=== PATIENT | male | born 1965 | race Caucasian/White ===

== ENCOUNTER 2017-09-26 15:48 | Inpatient (IN) | payer OTHER ==
[~2017-09-26] VITALS: Ht 175.3 cm; Wt 112.5 kg
--- NOTE | ~2017-09-26 | EKG ---
[place] [address] [place] [address] ELECTROCARDIOGRAM REPORT Name: REYNALDO CURRY Room #: REG JULIO Sandra#: [id number] Admission: 09/26/17 Attend Phys: Discharge: Date of : 67 Report #: [id number] THIS REPORT FOR: //name// [facility] ED Test Date: 2017-09-26 Test Time: 16:32:57 Pat Name: REYNALDO CURRY Department: Room: Gender: Chip Tester: MZOOK : 1965 Requested By: Carlo Pierre Order Number: [id number] MD: David Spencer Measurements Intervals [place] Rate: 106 P: 55 AR: 159 QRS: 39 QRSD: 81 T: 257 QT: 319 QTc: 424 Interpretive Statements Sinus tachycardia T abnormalities, inferior and lateral leads Compared to ECG 08/17/2012 07:04:21 T-wave abnormality now present Heart rate has increased Electronically Signed On 09-26-2017 16:50:18 EDGE BLACKER by David Spencer [email or web address] <ELECTRONICALLY SIGNED> By: David Spencer MD, [facility] 09/26/17 1650 1632 31 David Spencer MD, FACC /EPI
--- NOTE | ~2017-09-26 | 2DMMODE ---
[facility] [address] [place] [address] 2 D/M-MODE ECHOCARDIOGRAM Name: REYNALDO CURRY Room #: 359-P [facility] IN ..#: [id number] Admission: 09/26/17 Attend Phys: Antony Breen, Discharge: Date of : 67 Date of Service: 09/29/17 1205 Report #: [id number] THIS REPORT FOR: //name// APPROVED REPORT Study performed: 09/28/2017 11:46:35 EXAM: Comprehensive 2D, Doppler, and color-flow Echocardiogram Patient Location: Bedside Room #: 359 Status: on-call BSA: 2.26 HR: 68 bpm BP: 101/69 mmHg Rhythm: NSR Other Information Study Quality: Adequate Risk Factors: Cardiac Risk Factors: HTN, DM Indications Dyspnea EKG changes 2D Dimensions LVEF(%): 56.32 (>50%) IVSd: 10.63 (7-11mm) LVOT Diam: 20.00 (18-24mm) LVDd: 43.93 mm PWd: 10.63 (7-11mm) Ascending Ao: 33.62 (22-36mm) LVDs: 31.08 (25-40mm) Aortic Root: 30.87 mm LV Single Plane 4CH: 58.52 % LV Single Plane 2CH: 48.02 % Vance's LVEF: 53.27 % Biplane EF: 54.2 % Volumes Left Atrial Volume (Systole) Single Plane 4CH: 29.64 mL Single Plane 2CH: 37.70 mL LA ESV Index: 16.00 mL/m2 Aortic Valve AoV Peak Maximilian.: 1.00 m/s AO Peak Gr.: 4.00 mmHg LVOT Max P.16 mmHg [facility] [address] [place] [address] 2 D/M-MODE ECHOCARDIOGRAM Name: REYNALDO CURRY Room #: 359-P [facility] IN ..#: [id number] Admission: 09/26/17 Attend Phys: Antony Breen, Discharge: Date of : 67 Date of Service: 09/29/17 1205 Report #: [id number] LVOT Max V: 0.74 m/s ANA Vmax: 2.41 cm2 Mitral Valve E/A Ratio: 1.7 MV Decel. Time: 272.47 ms MV E Max Maximilian.: 0.84 m/s MV A Maximilian.: 0.49 m/s MV PHT: 79.01 ms IVRT: 78.43 ms TDI E/Lateral E': 9.33 E/Medial E': 14.00 Medial E' Maximilian.: 0.06 m/s Lateral E' Maximilian.: 0.09 m/s Pulmonary Valve PV Peak Maximilian.: 0.89 m/s PV Peak Gr.: 3.18 mmHg Pulmonary Vein P Vein S: 0.58 m/s P Vein A: 0.27 m/s P Vein D: 0.37 m/s P Vein A Dur.: 120.0 msec P Vein S/D Ratio: 1.57 Tricuspid Valve TR Peak Maximilian.: 2.14 m/s TR Peak Gr.: 18.25 mmHg Left Ventricle The left ventricle is normal size. There is normal LV segmental wall motion. Mild concentric left ventricular hypertrophy. Left ventricular systolic function is normal. The left ventricular ejection fraction is within the normal range. LVEF is 60%. Grade II - pseudonormal filling dynamics. Right Ventricle The right ventricle is normal size. The right ventricular systolic function is normal. Atria The left atrium size is normal. The right atrium size is normal. Aortic Valve The aortic valve is normal in structure. No aortic regurgitation is present. There is no aortic valvular stenosis. [facility] [address] [place] [address] 2 D/M-MODE ECHOCARDIOGRAM Name: REYNALDO CURRY Room #: 359-P [facility] IN [facility]#: [id number] Admission: 09/26/17 Attend Phys: Antony Breen, Discharge: Date of : 67 Date of Service: 09/29/17 1205 Report #: [id number] Mitral Valve The mitral valve is normal in structure. Trace mitral regurgitation. No evidence of mitral valve stenosis. Tricuspid Valve The tricuspid valve is normal in structure. Mild tricuspid regurgitation. Pulmonic Valve The pulmonary valve is normal in structure. Trace pulmonic regurgitation. Great Vessels The aortic root is normal in size. IVC is not well visualized. Pericardium There is no pericardial effusion. <Conclusion> The left ventricle is normal size. LVEF is 60%. The aortic valve is normal in structure. The mitral valve is normal in structure. Trace mitral regurgitation. The tricuspid valve is normal in structure. Mild tricuspid regurgitation. The pulmonary valve is normal in structure. Trace pulmonic regurgitation. There is no pericardial effusion. <ELECTRONICALLY SIGNED> By: Escobar Green MD 09/29/17 1205 1205 1205 Escobar Green MD /INF
[~2017-09-26 15:48] MED LIST: ACETAMINOPHEN325 M1 PO; ASPIRIN325 PO; ATORVASTATIN CA20 MG PO; HYDROCHLOROTHIA50 MG PO; NORCO 5-325 TA1 EACH PO; NORFLEX100 MG PO; PAXIL 20 MG TAB20 M1 PO; POTASSIUM20 PO; PRINIVIL5 MG PO; VITAMINC500 PO
[2017-09-26 15:50] VITALS: BP 138/56
[2017-09-26 16:15] LABS: ABSOLUTE NEUTROPHILS 5.8 thou/uL (1.4-8.2); BASOPHILS 0.8 % (0.0-2.0); EOSINOPHILS 0.4 % (0.0-3.0); HEMATOCRIT 46.2 % (42.0-52.0); HEMOGLOBIN 15.9 gm/dL (14.0-18.0); LYMPHOCYTES 23.7 % (24.0-44.0); MCH 30.3 pg (26.0-34.0); MCHC 34.5 g/dL (28.0-37.0); MCV 87.9 fL (80.0-100.0); MONOCYTES 7.4 % (1.0-8.0); PLATELET COUNT 228 thou/uL (150-400); POLYS 67.7 % (36.0-66.0); RBC 5.25 mil/uL (4.50-6.00); RDW 12.6 % (10.5-14.5); WBC 8.6 thou/uL (4.0-11.0)
[2017-09-26] MEDS ORDERED: HYDROCHLOROTHIA25 M2 PO (16:26)
[2017-09-26 16:28] LABS: ANION GAP 14 mmol/L (7-16); BUN 16 mg/dL (7-18); CALCIUM 9.9 mg/dL (8.5-10.1); CHLORIDE 90 mmol/L (98-107); CO2 24 mmol/L (21-32); CREATININE 1.6 mg/dL (0.7-1.3); POTASSIUM 3.6 mmol/L (3.5-5.1); SODIUM 128 mmol/L (136-145)
[2017-09-26 16:30] LABS: GLUCOSE 593 mg/dL (74-106)
[2017-09-26 16:34] LABS: URINE BILIRUBIN NEGATIVE (Negative); URINE BLOOD NEGATIVE (Negative); URINE CLARITY CLEAR; URINE COLOR YELLOW; URINE GLUCOSE-RANDOM* 3+ (Negative); URINE KETONES NEGATIVE (Negative); URINE LEUKOCYTES NEGATIVE (Negative); URINE NITRITE NEGATIVE (Negative); URINE PROTEIN (DIPSTICK) NEGATIVE (Negative); URINE UROBILINOGEN 0.2 E.U./dl (0.2-1.0)
[2017-09-26 16:36] LABS: ALBUMIN 3.9 g/dL (3.4-5.0); DIRECT BILIRUBIN 0.1 mg/dL (<0.1-0.3); LIPASE 84 U/L (73-393); SGOT 23 U/L (15-37); SGPT 74 U/L (30-65); TOTAL BILIRUBIN 0.5 mg/dL (<0.1-1.0); TOTAL PROTEIN 7.7 g/dL (6.4-8.2)
[2017-09-26 16:46] LABS: TROPONIN-I < 0.04 ng/mL (<0.06)
[2017-09-26 18:04] LABS: BE(vivo) -3.2 mmol/L (-2 to +3); HCO3 20.6 mmol/L (22.0-26.0); PCO2 33.9 mmHg (35.0-45.0); PO2 71.7 mmHg (80.0-100.0); pH 7.402 (7.360-7.450); sO2 94.6 % (92.0-98.0)
[2017-09-26 18:28] VITALS: BP 128/72
[2017-09-26 19:21] VITALS: BP 122/81
[2017-09-26 19:47] LABS: PHOSPHORUS 3.2 mg/dL (2.5-4.9)
[2017-09-26 19:50] VITALS: BP 145/95
[2017-09-27 03:30] VITALS: BP 114/81
[2017-09-27 05:44] LABS: HEMATOCRIT 37.5 % (42.0-52.0); MCH 30.3 pg (26.0-34.0); MCHC 35.1 g/dL (28.0-37.0); MCV 86.5 fL (80.0-100.0); RBC 4.34 mil/uL (4.50-6.00); RDW 12.7 % (10.5-14.5); WBC 6.2 thou/uL (4.0-11.0)
[2017-09-27 05:46] LABS: HEMOGLOBIN 13.2 gm/dL (14.0-18.0)
[2017-09-27 05:59] LABS: CALCIUM 8.3 mg/dL (8.5-10.1); CREATININE 0.9 mg/dL (0.7-1.3); MAGNESIUM 1.8 mg/dL (1.8-2.4); POTASSIUM 3.5 mmol/L (3.5-5.1)
[2017-09-27 08:00] VITALS: BP 128/83
[2017-09-27 11:25] VITALS: BP 119/79
[2017-09-27 16:30] VITALS: BP 110/81
[2017-09-27 19:04] VITALS: BP 108/70
[2017-09-27] MEDS ORDERED: LISINOPRIL10 MG PO (19:27)
[2017-09-27] MEDS ORDERED: BRINTELLIX20 MG PO (19:47)
[2017-09-27 20:43] LABS: URINE BILIRUBIN NEGATIVE (Negative); URINE BLOOD 3+ (Negative); URINE CLARITY CLEAR; URINE COLOR YELLOW; URINE GLUCOSE-RANDOM* NEGATIVE (Negative); URINE KETONES NEGATIVE (Negative); URINE LEUKOCYTES NEGATIVE (Negative); URINE NITRITE NEGATIVE (Negative); URINE PROTEIN (DIPSTICK) NEGATIVE (Negative); URINE SPECIFIC GRAVITY <= 1.005 (1.005-1.035); URINE UROBILINOGEN 0.2 E.U./dl (0.2-1.0)
[2017-09-27 20:57] LABS: BACTERIA 1-9 Few /HPF (None Seen); SQUAMOUS None Seen /LPF (0-3); URINE RBC >20 Many /HPF (0-2); URINE WBC 0-5 Rare /HPF (0-5)
[2017-09-27 20:58] LABS: CASTS None Seen /LPF (None Seen); CRYSTALS None Seen /LPF (None Seen)
[2017-09-27 21:09] LABS: GLYCOHEMOGLOBIN (HGB A1C) 9.6 % (4.8-5.6)
[2017-09-28 01:19] LABS: ABSOLUTE NEUTROPHILS 2.7 thou/uL (1.4-8.2); BASOPHILS 0.3 % (0.0-2.0); EOSINOPHILS 2.8 % (0.0-3.0); HEMATOCRIT 38.5 % (42.0-52.0); HEMOGLOBIN 13.5 gm/dL (14.0-18.0); LYMPHOCYTES 42.9 % (24.0-44.0); MCH 30.4 pg (26.0-34.0); MCHC 35.2 g/dL (28.0-37.0); MCV 86.5 fL (80.0-100.0); MONOCYTES 6.4 % (1.0-8.0); PLATELET COUNT 141 thou/uL (150-400); POLYS 47.6 % (36.0-66.0); RBC 4.45 mil/uL (4.50-6.00); RDW 12.4 % (10.5-14.5); WBC 5.6 thou/uL (4.0-11.0)
[2017-09-28 03:46] VITALS: BP 98/59
[2017-09-28 07:49] VITALS: BP 93/58
[2017-09-28 08:41] LABS: HEMATOCRIT 40.9 % (42.0-52.0); HEMOGLOBIN 14.1 gm/dL (14.0-18.0); MCH 30.1 pg (26.0-34.0); MCHC 34.6 g/dL (28.0-37.0); RBC 4.7 mil/uL (4.50-6.00); RDW 12.5 % (10.5-14.5)
[2017-09-28 08:46] LABS: CALCIUM 8.9 mg/dL (8.5-10.1); CREATININE 0.8 mg/dL (0.7-1.3); MAGNESIUM 1.9 mg/dL (1.8-2.4); POTASSIUM 3.4 mmol/L (3.5-5.1)
[2017-09-28 11:49] VITALS: BP 101/69
[2017-09-28 15:39] VITALS: BP 115/87
[2017-09-28 19:10] VITALS: BP 141/97
[2017-09-28 19:15] VITALS: BP 108/66
[2017-09-29 03:43] LABS: HEMOGLOBIN 13.3 gm/dL (14.0-18.0); MCH 30.3 pg (26.0-34.0); MCHC 34.9 g/dL (28.0-37.0); MCV 86.9 fL (80.0-100.0); RBC 4.37 mil/uL (4.50-6.00); RDW 12.4 % (10.5-14.5); WBC 5.8 thou/uL (4.0-11.0)
[2017-09-29 03:47] LABS: CREATININE 0.8 mg/dL (0.7-1.3); POTASSIUM 3.7 mmol/L (3.5-5.1)
[2017-09-29 04:40] VITALS: BP 111/76
[2017-09-29 07:48] VITALS: BP 120/86
[2017-09-29] MEDS ORDERED: ALTACE5 MG PO (09:14)
[2017-09-29] MEDS ORDERED: LEVEMIR SUBQ (09:30)
[2017-09-29] MEDS ORDERED: NOVOLOG100 UNIT/1 SUBQ ×2 (09:33→11:09)
[2017-09-29] MEDS ORDERED: 1ST TIER UNILE1 EAC1 INJECTION (09:37)
[2017-09-29] MEDS ORDERED: ADVOCATE SYRIN1 EAC1 INJECTION (09:40)
[2017-09-29] MEDS ORDERED: LIPITOR 20 MG T20 M1 PO (09:43)
[2017-09-29 12:54] VITALS: BP 120/86
== END 2017-09-29 13:46 | disposition home or self-care (01) | DRG 638 ==
LOC: ER 15:48 → EROBS 17:00 → 3W 17:00
PROVIDERS: Internal Medicine; Nurse Practitioner; Nurse Practitioner Family
DX: E11.10 Type 2 diabetes mellitus with ketoacidosis without coma (principal); E87.2 Acidosis; I10 Essential (primary) hypertension; E78.5 Hyperlipidemia, unspecified; F41.9 Anxiety disorder, unspecified; Z90.49 Acquired absence of other specified parts of digestive tract; Z79.899 Other long term (current) drug therapy; Z79.82 Long term (current) use of aspirin
CPT/HCPCS: 10779

== ENCOUNTER 2021-10-19 09:07 | Inpatient (IN) | payer OTHER ==
[~2021-10-19] VITALS: Ht 172.7 cm; Wt 118.8 kg
[~2021-10-19 09:07] MED LIST changes: +1ST TIER UNILE1 EAC1 INJECTION; +ADVOCATE SYRIN1 EAC1 INJECTION; +ALTACE5 MG PO; +BRINTELLIX20 MG PO; +HYDROCHLOROTHIA25 M2 PO; +LEVEMIR SUBQ; +LIPITOR 20 MG T20 M1 PO; +LISINOPRIL10 MG PO; +NOVOLOG100 UNIT/1 SUBQ
[2021-10-19 09:15] VITALS: BP 172/94
[2021-10-19 09:33] LABS: BE(vivo) 3.7 mmol/L (-2 to +3); HCO3 28.4 mmol/L (22.0-26.0); PCO2 VENOUS 43.6 mmHg (41.0-51.0); PO2 VENOUS 39.1 mmHg (35.0-45.0)
[2021-10-19] MEDS ORDERED: DULOXETINE HCL60 MG PO (09:33)
[2021-10-19] MEDS ORDERED: LANTUS SOL100 UNIT/1 (09:33)
[2021-10-19] MEDS ORDERED: LISINOPRIL-HCT1 EAC2 PO (09:34)
[2021-10-19] MEDS ORDERED: HUMALOG KW100 UNIT/1 SUBQ (09:37)
[2021-10-19 09:44] LABS: ABSOLUTE NEUTROPHILS 10.6 thou/uL (1.4-8.2); BASOPHILS 0.2 % (0.0-2.0); EOSINOPHILS 2.5 % (0.0-3.0); HEMOGLOBIN 11.6 gm/dL (14.0-18.0); LYMPHOCYTES 12.6 % (24.0-44.0); MCH 24.3 pg (26.0-34.0); MCHC 32.3 g/dL (28.0-37.0); MCV 75.1 fL (80.0-100.0); MONOCYTES 4.7 % (1.0-8.0); PLATELET COUNT 292 thou/uL (150-400); RBC 4.79 mil/uL (4.50-6.00); RDW 14.8 % (10.5-14.5); WBC 13.2 thou/uL (4.0-11.0)
[2021-10-19 09:56] LABS: CALCIUM 9.2 mg/dL (8.5-10.1); CREATININE 0.9 mg/dL (0.7-1.3)
[2021-10-19 09:59] LABS: APTT 26.2 Seconds (24.5-32.8); INR 0.92; PROTIME 10.1 Seconds (10.5-12.1)
[2021-10-19 10:06] LABS: ALBUMIN 3.6 g/dL (3.4-5.0); TOTAL BILIRUBIN 0.4 mg/dL (0.2-1.0); TOTAL PROTEIN 6.5 g/dL (6.4-8.2)
[2021-10-19 10:31] LABS: URINE BILIRUBIN NEGATIVE (Negative); URINE BLOOD NEGATIVE (Negative); URINE CLARITY CLEAR; URINE COLOR YELLOW; URINE GLUCOSE-RANDOM* NEGATIVE (Negative); URINE KETONES NEGATIVE (Negative); URINE LEUKOCYTES-REFLEX NEGATIVE (Negative); URINE NITRITE-REFLEX NEGATIVE (Negative); URINE PROTEIN (DIPSTICK) NEGATIVE (Negative); URINE UROBILINOGEN 0.2 E.U./dl (0.2-1.0)
[2021-10-19 11:50] VITALS: BP 128/76
[2021-10-19 12:07] LABS: CHOLESTEROL 210 mg/dL (<200); HDL CHOLESTEROL 34 mg/dL (>40); TC:HDL 6.2 Ratio (Not establshd); TRIGLYCERIDE 492 mg/dL (<150); VLDL 98 mg/dL (<40)
--- NOTE | 2021-10-19 15:58 | EKG ---
[address] [address] ELECTROCARDIOGRAM REPORT Name: REYNALDO CURRY Room #: 211-P ADM IN M.R.#: [id number] Admission: 10/19/21 Attend Phys: Antony Breen MD Discharge: Date of : 67 Report #: [id number] [facility] ED Test Date: 2021-10-19 Test Time: 09:22:13 Pat Name: REYNALDO CURRY Department: Room: 211 Gender: M Mailing Clerk: AYLIN : 1965 Requested By: Edmond Wagner Order Number: [id number] MD: Dereje Lee Measurements Intervals [place] Rate: 100 P: 37 [place]: 136 QRS: 33 QRSD: 74 T: 11 QT: 335 QTc: 432 Interpretive Statements Sinus tachycardia Low voltage, precordial leads Anteroseptal infarct, old Compared to ECG 09/26/2017 16:32:57 Low QRS voltage now present Myocardial infarct finding now present T-wave abnormality no longer present Electronically Signed On 10-19-2021 15:58:00 PATIENT SCHEDULER by Dereje Lee [email or web address] <ELECTRONICALLY SIGNED> By: Dereje Lee MD, FAC 10/19/21 1558 1 1 Dereje Lee MD, [facility] /EPI
--- NOTE | 2021-10-19 18:34 | NUR ---
Pt arrived to unit at 1300. Pt is A&0x4, VS stable and afebrile. Pt reported that he still felt a little dizzy when he first arrived on the unit but now he is feeling better. Still has a slight headache (3/10). Pt has been resting in bed. No complaints of chest pain or SOB. Pt is scheduled for cardiac nuclear stress test in AM and will be NPO after midnight. No current concerns. Continue to monitor.
[2021-10-19 19:44] VITALS: BP 103/70
[2021-10-20 00:27] VITALS: BP 104/72
--- NOTE | 2021-10-20 00:52 | NUR ---
ASSESSMENTS CHARTED, MEDS CHARTED GIVEN. PATIENT RESTING IN BED DURING SHIFT. UP AT [place] IN ROOM. C/O HEADACHE. PLAN IS FOR STRESS TEST IN AM. NPO SINCE MIDNIGHT. NO CAFFEINE DURING SHIFT. CONTINUE CARES.
[2021-10-20 05:07] LABS: GLYCOHEMOGLOBIN (HGB A1C) 7.8 % (4.8-5.6)
[2021-10-20 05:11] LABS: CALCIUM 7.9 mg/dL (8.5-10.1); CHOLESTEROL 168 mg/dL (<200); CREATININE 0.8 mg/dL (0.7-1.3); HDL CHOLESTEROL 31 mg/dL (>40); LDL CHOLESTEROL 61 mg/dL (<100); MAGNESIUM 1.9 mg/dL (1.8-2.4); POTASSIUM 3.9 mmol/L (3.5-5.1); TC:HDL 5.4 Ratio (Not establshd); TRIGLYCERIDE 380 mg/dL (<150); VLDL 76 mg/dL (<40)
[2021-10-20 05:22] LABS: SERUM ASSESSMENT Clear
[2021-10-20 05:25] LABS: BASOPHILS 0.4 % (0.0-2.0); EOSINOPHILS 5.4 % (0.0-3.0); HEMATOCRIT 30.7 % (42.0-52.0); HEMOGLOBIN 10.1 gm/dL (14.0-18.0); LYMPHOCYTES 20.7 % (24.0-44.0); MCH 24.9 pg (26.0-34.0); MCHC 32.8 g/dL (28.0-37.0); MCV 75.8 fL (80.0-100.0); MONOCYTES 7.1 % (1.0-8.0); PLATELET COUNT 222 thou/uL (150-400); POLYS 66.4 % (36.0-66.0); RBC 4.05 mil/uL (4.50-6.00); RDW 15.1 % (10.5-14.5); WBC 9.1 thou/uL (4.0-11.0)
[2021-10-20 05:56] VITALS: BP 119/74
[2021-10-20 08:40] VITALS: BP 115/73
--- NOTE | 2021-10-20 10:56 | 2DMMODE ---
[facility] [place] [address] 2 D/M-MODE ECHOCARDIOGRAM Name: REYNALDO CURRY Room #: 211-P ADM IN M.R.#: [id number] Admission: 10/19/21 Attend Phys: Antony Breen MD Discharge: Date of : 67 Report #: [id number] THIS REPORT FOR: cc: Kevin Fofana James L. DO Lammoglia, Francisco J. MD ~ APPROVED REPORT Study performed: 10/20/2021 08:54:44 EXAM: Comprehensive 2D, Doppler, and color-flow Echocardiogram Patient Location: Bedside Room #: 211 Status: routine BSA: 2.27 HR: 90 bpm BP: 119/89 mmHg Rhythm: NSR Other Information Study Quality: Good Indications Chest Pain TIA Echo Enhancing Agent Indication: Rule out Shunt Agent(s) / Amount(s) Used: Agitated Saline 7 cc 2D Dimensions RVDd: 33.81 mm IVSd: 13.57 (7-11mm) LVOT Diam: 25.42 (18-24mm) LVDd: 48.90 mm PWd: 10.53 (7-11mm) Ascending Ao: 36.63 (22-36mm) LVDs: 33.89 (25-40mm) Left Atrium: 39.16 (27-40mm) Aortic Root: 41.79 mm Volumes Left Atrial Volume (Systole) Single Plane 4CH: 49.55 mL Single Plane 2CH: 58.38 mL LA ESV Index: 25.00 mL/m2 [facility] [place] [address] 2 D/M-MODE ECHOCARDIOGRAM Name: ANTOINETTEREYNALDO Room #: 211-P [facility] IN ..#: [id number] Admission: 10/19/21 Attend Phys: Antony Breen, Discharge: Date of : 67 Report #: [id number] Aortic Valve AoV Peak Maximilian.: 1.27 m/s AO Peak Gr.: 6.44 mmHg LVOT Max P.85 mmHg LVOT Max V: 1.21 m/s ANA Vmax: 4.83 cm2 Mitral Valve E/A Ratio: 1.4 MV Decel. Time: 195.38 ms MV E Max Maximilian.: 0.94 m/s MV A Maximilian.: 0.67 m/s MV PHT: 56.66 ms IVRT: 43.83 ms Pulmonary Valve PV Peak Maximilian.: 1.00 m/s PV Peak Gr.: 4.03 mmHg Pulmonary Vein P Vein S: 0.53 m/s P Vein A: 0.32 m/s P Vein D: 0.34 m/s P Vein A Dur.: 100.3 msec P Vein S/D Ratio: 1.56 Tricuspid Valve TR Peak Maximilian.: 2.48 m/s RAP Estimate: 5.00 mmHg TR Peak Gr.: 25.00 mmHg PA Pressure: 30.00 mmHg Left Ventricle The left ventricle is normal size. There is normal LV segmental wall motion. Mild basal septal hypertrophy is present. Left ventricular systolic function is normal. LVEF is 60-65%. Moderate diastolic dysfunction is present (pseudonormal filling). Right Ventricle The right ventricle is normal size. The right ventricular systolic function is normal. Atria The left atrium size is normal. The right atrium size is normal. No shunting noted with aggitated saline injection. Aortic Valve The aortic valve is normal in structure. No aortic regurgitation is present. There is no aortic valvular stenosis. Mitral Valve [facility] [address] [place] [address] 2 D/M-MODE ECHOCARDIOGRAM Name: REYNALDO CURRY Room #: 211-P [facility] IN [facility].#: [id number] Admission: 10/19/21 Attend Phys: Antony Breen, Discharge: Date of : 67 Report #: [id number] The mitral valve is normal in structure. Trace mitral regurgitation. Tricuspid Valve The tricuspid valve is normal in structure. Mild tricuspid regurgitation. Estimated PAP is 30mmHg. Pulmonic Valve The pulmonary valve is normal in structure. Trace pulmonic regurgitation. Great Vessels Aortic root is dilated (4.2cm). The ascending aorta is normal in size. IVC is normal in size and collapses >50% with inspiration. Pericardium There is no pericardial effusion. <Conclusion> The left ventricle is normal size. Mild basal septal hypertrophy is present. LVEF is 60-65%. The left atrium size is normal. The aortic valve is normal in structure. The mitral valve is normal in structure. Trace mitral regurgitation. The tricuspid valve is normal in structure. Mild tricuspid regurgitation. Estimated PAP is 30mmHg. The pulmonary valve is normal in structure. Trace pulmonic regurgitation. Aortic root is dilated (4.2cm). There is no pericardial effusion. Agitated saline contrast study without evidence for PFO <ELECTRONICALLY SIGNED> By: Escobar Green MD 10/20/21 1055 1055 1055 Escobar Green MD /INF
--- NOTE | 2021-10-20 11:06 | NUR ---
This manual writer was assisting with this pt's stress test when pt became diaphoretic, pale, briefly hypotensive, and c/o nausea. pt was able to complete the test as after the 2 min munira, most of the symptoms had resolved except for the nausea for which this manual writer gave Ondansetron 4mg per the prn order in NOV. Pt monitored closely and will reassess and treat as needed.
--- NOTE | 2021-10-20 11:51 | HC ---
[facility] [place] [address] CONSULTATION Name: REYNALDO CURRY Room #: 211-P ADM IN M.R.#: [id number] Admission: 10/19/21 Attend Phys: Antony Breen MD Discharge: Date of : 67 Report #: [id number] THIS REPORT FOR: cc: Kevin Fofana James L. DO Khosla, Parveen K. MD ~ DATE OF SERVICE: 10/19/2021 HISTORY OF PRESENT ILLNESS: This is a 56-year-old male patient who was evaluated by me to look for any neurological etiology for the patient's dizziness. This patient was seen in the Emergency Room. They consulted [facility]. [facility] neurologist saw him and recommended CT angio and MRI. The Neurology consultation was done to follow up. The patient says that he has this dizziness, which started several months ago. It started spontaneously without any trauma. If he moves his head, this dizziness becomes worse. He does not know any other aggravating or relieving factors. He cannot tell me whether it is postural or not. He has a longstanding history of anxiety. He has been on one or other antianxiety antidepressant medication for a long time. Presently, he is on Cymbalta from the last few months, but I am not sure there is a good correlation between starting Cymbalta and having these symptoms. REVIEW OF SYSTEMS: A 14-point review of system is positive for chest pain, which is going to be addressed by Cardiology. He has a history of hypertension, hyperlipidemia, diabetes, depression, anxiety, obstructive sleep apnea with a noncompliant. When he moves his eyes and tried to focus that makes him dizzy. He has some headaches, but he described as a nonspecific headache, which is going on for a long time. This was his relevant a 14-point review of systems. PAST MEDICAL HISTORY: Positive for pretty prominent anxiety. FAMILY HISTORY: Unremarkable. SOCIAL HISTORY: He is not a smoker. PHYSICAL EXAMINATION: The patient is alert and responsive. He appeared anxious and his higher function is basically unremarkable except for anxiety. Cranial nerve examination 2-12 looks mostly unremarkable. His reflexes are diminished, but symmetrically. His position sense is intact. His tone looks unremarkable. He does not have any ataxia. I could not look at the patient's fundus. Blood pressure is 128/76, respirations 16, pulse is 97, temperature is 98.1. He does not appear to be in respiratory difficulty. DIAGNOSTIC STUDIES: He had a CT angiogram of the head and neck. They described it as small vertebral artery, but has typically a normal variation. They did [facility] [address] [place] [address] CONSULTATION Name: REYNALDO CURRY Room #: 211-P [facility] IN M.R.#: [id number] Admission: 10/19/21 Attend Phys: Antony Breen MD Discharge: Date of : 67 Report #: [id number] not comment them on venous sinuses. I will talk to them and they usually can have a fairly good view of the cervical spine also. I will try to review the films with them. IMPRESSION: It is unlikely that there is a neurological etiology for the patient's symptoms. It is more likely either the anxiety or inner ear pathology. We will await the MRI, but I think the next evaluation should be ENT and if they feel if it is ENT origin, then the [facility] evaluation can be considered. I did order a TSH and vitamin B12 level in this patient to complete the workup. I will ask Dr. Shelton to follow up this patient with you from tomorrow and I will also try to get hold of the hospitalist and discuss my recommendation with them. Thank you very much for this referral. <ELECTRONICALLY SIGNED> By: Robbie Fernandez MD 10/20/21 1151 1321 Robbie Fernandez MD /nt
[2021-10-20] MEDS ORDERED: MECLIZINE HCL25 M1 PO (15:44)
[2021-10-20] MEDS ORDERED: FENOFIBRATE54 MG PO (15:44)
[2021-10-20] MEDS ORDERED: ADULT LOW DOSE81 MG PO (15:44)
[2021-10-20] MEDS ORDERED: LIPITOR40 MG PO (15:49)
[2021-10-20 16:20] VITALS: BP 115/73
--- NOTE | 2021-10-20 16:35 | NUR ---
ASSUMED PT CARE THIS MORNING. PT A&OX4 AND COMMUNICATING NEEDS TO STAFF APPROPRIATELY. PT NPO THIS MORNING FOR STRESS TESTING. PT TOLERATED TESTING WELL AND RETURNED TO A HEART HEALTHY/DIABETIC DIET. PT VOIDING WITHOUT ISSUE AND DENIED PAIN THROUGHOUT THE SHIFT. DC INSTRUCTIONS WERE REVIEWED WITH THE PATIENT AND THEIR . QUESTIONS INVITED AND ADDRESSED. IV AND TELE MONITORING DISCONTINUED. PT WAS SENT HOME WITH THEIR BELONGINGS TO THE CARE OF FAMILY.
[2021-10-22] MEDS ORDERED: VITAMIN B-121000 MC2 SUBLING (08:16)
== END 2021-10-20 17:01 | disposition home or self-care (01) | DRG 313 ==
LOC: ER 09:07 → EROBS 10:56 → 2N 10:56
PROVIDERS: Emergency Medicine; Nurse Practitioner; Psychiatry & Neurology Neuromuscular Medicine; ADMIT Internal Medicine; ATTEND Internal Medicine
DX: R07.89 Other chest pain (principal); R65.10 Systemic inflammatory response syndrome (SIRS) of non-infectious origin without acute organ dysfunction; E66.01 Morbid (severe) obesity due to excess calories; Z68.39 Body mass index [BMI] 39.0-39.9, adult; I10 Essential (primary) hypertension; E78.5 Hyperlipidemia, unspecified; F41.1 Generalized anxiety disorder; F31.9 Bipolar disorder, unspecified; F41.9 Anxiety disorder, unspecified; Z20.822 Contact with and (suspected) exposure to COVID-19; E11.65 Type 2 diabetes mellitus with hyperglycemia
CPT/HCPCS: 10081